=== PATIENT | female | born 1960 | race Caucasian/White ===

== ENCOUNTER 2024-07-24 09:42 | Outpatient (CLI) | payer OTHER ==
[2024-07-24 12:03] LABS: #Basophils 0.08 10x3/uL (0.0-0.2); %Eosinophils 5.6 % (0.0-10.0); %Lymphocytes 39.8 % (21.0-51.0); %Monocytes 8.8 % (0.0-10.0); %Neutrophils 44.7 % (42.0-75.0); Hematocrit 44.6 % (36.0-47.0); Hemoglobin 14.5 g/dL (12.0-16.0); Mean Corpuscular HGB CONC 32.5 g/dL (32.0-36.0); Mean Corpuscular Hemoglobin 29.9 pg (27.0-31.0); Mean Platelet Volume 12.1 fL (7.4-10.4); Platelet Count 246 10x3/uL (130-400); RBC Distribution Width 13.9 % (11.5-14.5); Red Blood Cell (RBC) Count 4.85 mill/uL (4.20-5.40)
[2024-07-24 12:21] LABS: Prothrombin Time 12.7 sec (12.0-14.7)
[2024-07-24 13:07] LABS: Anion Gap 12 mmol/L (10-20); BUN (Urea Nitrogen) 10 mg/dL (9.8-20.1); Calc. Creatinine Clearance 0 mL/min (70-130); Calcium 9.3 mg/dL (7.8-10.44); Carbon Dioxide 25 mmol/L (23-31); Chloride 109 mmol/L (98-107); Estimated GFR 80; Glucose 73 mg/dL (80-115); Potassium 3.6 mmol/L (3.5-5.1); Sodium 142 mmol/L (136-145)
== END 2024-07-24 09:43 | disposition home or self-care (01) ==
LOC: LABBT 09:42
PROVIDERS: ATTEND Orthopaedic Surgery
DX: Z01.818 Encounter for other preprocedural examination (principal); M17.12 Unilateral primary osteoarthritis, left knee
CPT/HCPCS: 80048; 85025; 85610; 87081; 93005; 93010

== ENCOUNTER 2024-07-24 10:52 | Outpatient (CLI) | payer OTHER, SELFPAY | END 2024-07-24 10:53 | disposition home or self-care (01) | LOC: CT 10:52 | PROVIDERS: ATTEND Orthopaedic Surgery | DX: M17.12 Unilateral primary osteoarthritis, left knee (principal) ==

== ENCOUNTER 2024-07-31 05:17 | Observation (INO) | payer OTHER ==
[2024-07-31] MEDS ORDERED: fentaNYL PF 100 MCG/2 ML SYRINGE ONE ×2 (06:08→09:23)
[2024-07-31] MEDS ORDERED: Ondansetron PF 4 MG/2 ML Vial ONE (06:08)
[2024-07-31] MEDS ORDERED: PROPOFOL 20 ML ONE (06:08)
[2024-07-31] MEDS ORDERED: Midazolam HCl 2 mg/2 ml Vial ONE (06:08)
[2024-07-31] MEDS ORDERED: Dexamethasone 4 mg/ml Vial ONE (06:08)
[2024-07-31] MEDS ORDERED: EPINEPHrine 1 MG/ML VIAL ONE (06:22)
[2024-07-31] MEDS ORDERED: Bupivacaine 0.25% HCL 30 ML VIAL ONE (06:22)
[2024-07-31] MEDS ORDERED: Sodium Chloride 0.9% 100 ML ONE (06:25)
[2024-07-31] MEDS ORDERED: Tranexamic Acid 1,000 MG/10 ML VIAL ONE (06:25)
[2024-07-31] MEDS ORDERED: Vancomycin (BATCH) 1.5 GM/300 ML BAG ONE (06:53)
[2024-07-31] MEDS ORDERED: CEFAZOLIN 2 GM VIAL ONE (06:55)
[2024-07-31] MEDS ORDERED: HYDROmorphone 2 MG/ML VIAL ONE ×2 (07:24→09:43)
[2024-07-31] MEDS ORDERED: PHENYLEPHRINE-NS 100 MCG/ML 10 ML SYRINGE ONE (07:25)
[2024-07-31] MEDS ORDERED: Morphine 2 MG/ML VIAL SLOW IVP PRN (07:26)
[2024-07-31] MEDS ORDERED: Promethazine HCl 25 MG/ML VIAL IM PRN (07:26)
[2024-07-31] MEDS ORDERED: Ondansetron PF 4 MG/2 ML Vial IVP PRN (07:26)
[2024-07-31] MEDS ORDERED: traMADol HCl 50 MG TAB PO PRN (07:26)
[2024-07-31] MEDS ORDERED: HYDROcodone/Acetaminophen 10/325 mg Tablet PO PRN (07:26)
[2024-07-31] MEDS ORDERED: Acetaminophen 325 MG TAB PO PRN (07:26)
[2024-07-31] MEDS ORDERED: Zolpidem Tartrate 5 MG TAB PO PRN (07:26)
[2024-07-31] MEDS ORDERED: Aspirin 81 mg Enteric Coated Tablet PO SCH (09:00)
[2024-07-31] MEDS: Sodium Chloride 0.9% 1,000 ML IV SCH (10:38)
[2024-07-31 11:16] VITALS: BMI 34.9
[2024-07-31] MEDS: Multivitamin W/ Minerals 1 TAB PO SCH (11:26)
[2024-07-31] MEDS: Ferrous Gluconate 324 MG TAB PO SCH (11:26)
[2024-07-31] MEDS: Senokot S 8.6-50 MG TAB PO SCH (11:27)
[2024-07-31] MEDS ORDERED: Ketorolac Tromethamine 30 MG (1 mL) VIAL IM SCH (14:00)
[2024-07-31] MEDS: CEFAZOLIN 2 GM in Sodium Chloride 0.9% 100 ML IVPB SCH (14:41)
[2024-07-31] MEDS: traMADol HCl 50 MG TAB PO PRN (14:41)
[2024-07-31 17:02] VITALS: BP 132/83; TEMP 97.6
[2024-07-31] MEDS: Vancomycin 1.5 GM in Sodium Chloride 0.9% 250 ML 300 ML IVPB SCH (18:07)
[2024-07-31] MEDS: HYDROcodone/Acetaminophen 10/325 mg Tablet PO PRN (18:13)
[2024-07-31] MEDS: diphenhydrAMINE 25 MG CAP PO PRN (21:13)
[2024-08-01] MEDS ORDERED: Levothyroxine Sodium 112 MCG TAB PO SCH (06:00)
[2024-08-01] MEDS ORDERED: Pantoprazole DR 40 MG TAB PO SCH (09:00)
[2024-08-01] MEDS ORDERED: prednisoLONE 1% Ophth Susp 5 ml Bottle EA EYE SCH (09:00)
[2024-08-01] MEDS ORDERED: Apixaban 2.5 MG TAB PO SCH (09:00)
[2024-08-01] MEDS ORDERED: Non-Formulary Item 1 EACH (Prednisolone Acetate/Pf [Prednisolone Acet 1% Eye Drop] 5 ML D EA EYE SCH (09:00)
[2024-08-01] MEDS ORDERED: Non-Formulary Item 1 EACH (Esomeprazole Magnesium [Nexium] 20 MG Capsule.Dr) PO SCH ×2 (09:00)
== END 2024-08-01 14:45 | disposition home or self-care (01) ==
LOC: SDC 05:17 → SURG B 10:38
PROVIDERS: ADMIT Orthopaedic Surgery; ATTEND Orthopaedic Surgery
DX: M17.12 Unilateral primary osteoarthritis, left knee (principal); Z96.651 Presence of right artificial knee joint; Z79.899 Other long term (current) drug therapy; Z79.01 Long term (current) use of anticoagulants; Z90.89 Acquired absence of other organs; Z79.890 Hormone replacement therapy; Z88.6 Allergy status to analgesic agent
CPT/HCPCS: 0055T; 27447; C1713; C1776; C1889; J0171; J0665; J1100; J2250; J2405; J2704; J3370; J7030; J7050